=== PATIENT | female | born 1970 | race Caucasian/White ===

== ENCOUNTER 2016-07-04 11:13 | Emergency (ER) | payer OTHER ==
[~2016-07-04] VITALS: Ht 162.6 cm; Wt 115.0 kg
[~2016-07-04 11:13] MED LIST: FLEXERIL10 MG PO; MEGACE40 MG PO; METRONIDAZOLE500 MG PO; MOTRIN400 MG PO; MOTRIN800 MG PO; NOHOMEMEDS; PERCOCET 5/31 TABLET PO; TORADOL10 MG PO; ZOFRAN4 MG PO
[2016-07-04 11:31] VITALS: BP 145/70
== END 2016-07-04 15:25 | disposition home or self-care (01) ==
LOC: EME 11:13
DX: S05.02XA Injury of conjunctiva and corneal abrasion without foreign body, left eye, initial encounter (principal); V49.40XA Driver injured in collision with unspecified motor vehicles in traffic accident, initial encounter; Y92.410 Unspecified street and highway as the place of occurrence of the external cause; Z88.5 Allergy status to narcotic agent
CPT/HCPCS: 70486; 99281; 99284

== ENCOUNTER 2017-01-18 08:31 | Emergency (ER) | payer SELFPAY ==
[~2017-01-18] VITALS: Ht 162.6 cm; Wt 131.1 kg
[2017-01-18] MEDS ORDERED: MOTRIN600 MG PO (10:19)
[2017-01-18 10:31] VITALS: BP 136/98
== END 2017-01-18 10:31 | disposition home or self-care (01) ==
LOC: EME 08:31
DX: S86.911A Strain of unspecified muscle(s) and tendon(s) at lower leg level, right leg, initial encounter (principal); X50.9XXA Other and unspecified overexertion or strenuous movements or postures, initial encounter; Y93.01 Activity, walking, marching and hiking; F17.200 Nicotine dependence, unspecified, uncomplicated
CPT/HCPCS: 93971; 99281; 99283

== ENCOUNTER 2017-02-25 10:35 | Emergency (ER) | payer SELFPAY ==
[~2017-02-25] VITALS: Ht 162.6 cm; Wt 130.7 kg
[~2017-02-25 10:35] MED LIST changes: +MOTRIN600 MG PO
[2017-02-25 10:39] VITALS: BP 158/78
[2017-02-25] MEDS ORDERED: PEN-VEE K,VEET500 MG PO (11:29)
[2017-02-25] MEDS ORDERED: MOTRIN800 MG PO (11:31)
== END 2017-02-25 11:43 | disposition home or self-care (01) ==
LOC: EME 10:35
DX: K08.89 Other specified disorders of teeth and supporting structures (principal); K03.81 Cracked tooth; K02.9 Dental caries, unspecified; R42 Dizziness and giddiness; F17.200 Nicotine dependence, unspecified, uncomplicated
CPT/HCPCS: 99281; 99284